=== PATIENT | male | born 1970 | race Caucasian/White ===

== ENCOUNTER 2022-06-20 15:08 | Outpatient (REF) | payer OTHER, SELFPAY ==
--- NOTE | ~2022-06-20 | XR_ITS ---
EXAMINATION: XR HAND, LEFT CLINICAL INFORMATION: Left hand COMPARISON: None TECHNIQUE: PA, lateral, and oblique views of the left hand. FINDINGS: There is slight fragmentation over the terminal tuft of the thumb which could reflect crush fracture of uncertain age. I do not see a radiopaque foreign body as questioned. Carpal alignment is preserved. XR/XR hand LT min 3V IMPRESSION: Crush injury to the terminal tuft of the thumb of uncertain age.
== END 2022-06-20 15:09 | disposition home or self-care (01) ==
LOC: HO.XRAY 15:08
PROVIDERS: Visit Provider Registered Nurse
DX: S60.552A Superficial foreign body of left hand, initial encounter (principal); X58.XXXA Exposure to other specified factors, initial encounter; Y93.9 Activity, unspecified; Y92.9 Unspecified place or not applicable; Y99.9 Unspecified external cause status
CPT/HCPCS: 73130

== ENCOUNTER 2025-05-26 15:10 | Outpatient (REF) | payer OTHER, SELFPAY ==
--- NOTE | ~2025-05-26 | XR_ITS ---
EXAMINATION: XR SINUSES CLINICAL INFORMATION: PRESSURE COMPARISON: None available. TECHNIQUE: 3 views of the sinuses were obtained. FINDINGS: Paranasal sinuses appear grossly clear without gross opacification or air-fluid levels present. The nasal septum is essentially midline. There is no spur. The orbits are intact. The calvarium appears normal. The sella is normal in size. There is no soft tissue abnormality. XR/XR sinus min 3V IMPRESSION: No definite evidence of significant paranasal sinus disease on radiography. CT is far more sensitive if felt clinically warranted. Electronically signed by: Sergio Victoria MD 05/26/2025 03:52 PM EDT
--- OUTSIDE RECORDS SUMMARY | 2025-05-26 13:45 | XMS_ITS | Encounter Summary ---
Author Organization [employer] Address [address] [place] [address] 7 [place] [address] Care Team Providers Care Orientation And Mobility Instructor Name Role Phone Montserrat Ronquillo MD Primary Care Pro vider Encounter Details Date Type Department Care Team ([facility] st Contact Info) Description 05/26/2025 1:45 PM EDT Office Visit [facility] [address] [place] [address] [phone] Montserrat Ronquillo MD [address] [place] [address] Annual physical exam (Primary Dx); Type 2 diabetes mellitus without complication, without long-term current use of insulin (CMS/HCC); Dietary counseling; Exercise counseling; Sinus pain; Encounter for immunization Social History Tobacco Use Types Packs/Day Years Used Date Smoking Tobacco: Every Day Cigarettes Smokeless Tobacco: Never Comments:Started smoking at his 16 y until his 52 y of age -smoked for 36 y ,10 to 15 cig a day ,stopped 2 y ago PQT calc 27 Alcohol Use Standard Drinks/Week Comments Never 0 (1 standard drink = 0.6 oz pur e alcohol) Depression Answer Date Recorded Patient Health Questionnaire-9 Score 0 05/26/2025 Patient Health Questionnaire-9 Score 0 05/26/2025 Last PHQ-9: Questionnaire Data Not on file 0 05/26/2025 Housing Stability Answer Date Recorded What is your housing situation today? I have cecilia alba 05/19/[address] you li ve. Do you have problems with any of the following? None of the above 05/19/2025 Food Insecurity Answer Date Recorded Within the past 12 months, y ou worried that your food would run out before you got money to buy more: Never True 05/19/2025 Within the past 12 months,th e food you bought just didn't last and you didn't have enough money to get more: Never True 07/2025 Transportation Answer Date Recorded In the past 12 months, has l ack of transportation kept you from medical appts, meetings, work or from getting things needed for daily living? No 05/19/2025 Utilities Answer Date Recorded In the past 12 months, has t he electric, gas, oil or water company threatened to shut off services in your home? No 05/19/2025 Depression Answer Date Recorded Patient Health Questionnaire-2 Score 0 05/26/2025 Internet Access Answer Date Recorded Internet Access Q1 Yes 05/19/2025 Internet Access Q2 Not on file 05/19/2025 Sex and Gender Information Value Date Recorded Sex Assigned at Male 07/08/2022 10:30 AM EDT Legal Sex Male 10:30 AM EDT Gender Identity Male 07/08/2022 10:30 AM EDT Sexual Orientation Straight 05/26/2025 2: 16 PM EDT documented as of this encounter Last Filed Vital Signs Vital Sign Reading Time Taken Comments Blood Pressure 142/90 05/26/2025 2:07 PM EDT Pulse 83 05/26/2025 2:07 PM EDT Temperature 36.3 C (97.3 F) 05/26/2025 2:07 PM EDT Respiratory Rate 20 05/26/2025 2:07 PM EDT Oxygen Saturation 99% 05/26/2025 2:07 PM EDT Inhaled Oxygen Concentration - - Weight 115 kg (253 lb) 05/26/2025 2:07 PM EDT Height 172.7 cm (5' 8 ) 05/26/2025 2:07 PM EDT Body Mass Index 38.47 05/26/2025 2:07 PM EDT documented in this encounter Functional Status * Over the past 2 weeks, how often have you been bothered by any of the following problems? Question Answer Date of Assessment Author Patient Health Questionnaire -2 Score 0 05/26/2025 2:09 PM EDT Laura Ni MA * Little interest or pleasure in doing things Answer Date of Assessment Author Not at all 05/26/2025 2:09 PM Giorgio Seay MA * Feeling down, depressed, or hopeless Answer Date of Assessment Author Not at all 05/26/2025 2:09 PM Giorgio Seay MA * Trouble falling or staying asleep, or sleeping too much Answer Date of Assessment Author Not at all 05/26/2025 2:09 PM Giorgio Seay MA * Feeling tired or having little energy Answer Date of Assessment Author Not at all 05/26/2025 2:09 PM Giorgio Seay MA * Poor appetite or overeating Answer Date of Assessment Author Not at all 05/26/2025 2:09 PM Giorgio Seay MA * Feeling bad about yourself - or that you are a failure or have let yourself or your family down Answer Date of Assessment Author Not at all 05/26/2025 2:09 PM Giorgio Seay MA * Trouble concentrating on things, such as reading the newspaper or watching television Answer Date of Assessment Author Not at all 05/26/2025 2:09 PM Giorgio Seay MA * Moving or speaking so slowly that other people could have noticed? Or the opposite - being so fidgety or restless that you have been moving around a lot more than usual. Answer Date of Assessment Author Not at all 05/26/2025 2:09 PM Giorgio Seay MA * Thoughts that you would be better off or hurting yourself in some way Answer Date of Assessment Author Not at all 05/26/2025 2:09 PM Giorgio Seay MA * Patient Health Questionnaire-9 Score Answer Date of Assessment Author 0 05/26/2025 2:09 PM Giorgio Seay MA * Over the last 2 weeks, how often have you been bothered by any of the following problems? Question Answer Date of Assessment Author Feeling nervous, anxious, or on edge 0 05/26/2025 2:09 PM Laura Seay MA Not being able to stop or co ntrol worrying 0 05/26/2025 2:09 PM EDT Laura Ni MA Worrying too much about diff erent things 0 05/26/2025 2:09 PM EDT Laura Ni MA Trouble relaxing 0 05/26/2025 2:09 PM EDT Laura Owen MA Being so restless that it is hard to sit still 0 05/26/2025 2:09 PM EDT Laura Ni MA Becoming easily annoyed or irritable 0 05/26/2025 2:09 PM EDT Laura Ni MA Feeling afraid as if somethi ng awful might happen 0 05/26/2025 2:09 PM EDT Laura Ni MA BOOKER-7 Total Score 0 05/26/2025 2:09 PM EDT Laura Ni MA documented as of this encounter Plan of Treatment Scheduled Orders Name Type Priority Associated Diagnoses Orde r Schedule T4, Free Lab Routine Annual physical exam Expected: 05/26/2025 (Approximate), Expires: 05/26/2026 TSH Lab Routine Annual physical exam Expected: 05/26/2025 (Approximate), Expires: 05/26/2026 Albumin, Random Urine W/Creatinine Lab Routine Annual physical exam Expected: 05/26/2025 (Approximate), Expires: 05/26/2026 CBC auto differential Lab Routine Annual physical exam Expected: 05/26/2025 (Approximate), Expires: 05/26/2026 Chlamydia/Trichomonas/Neis seria gonorrhoeae, PCR, Urine Lab Routine Annual physical exam Ordered: 05/26/2025 Comprehensive Metabolic Panel Lab Routine Annual physical exam Expected: 05/26/2025 (Approximate), Expires: 05/26/2026 Hemoglobin A1c Lab Routine Annual physical exam Expected: 05/26/2025 (Approximate), Expires: 05/26/2026 Hepatitis B Core Antibody, Total Lab Routine Annual physical exam Expected: 05/26/2025 (Approximate), Expires: 05/26/2026 Hepatitis B Surface Antibody, Qualitative Lab Routine Annual physical exam Expected: 05/26/2025 (Approximate), Expires: 05/26/2026 Hepatitis B surface antigen, EIA Lab Routine Annual physical exam Expected: 05/26/2025 (Approximate), Expires: 05/26/2026 Hepatitis C Antibody with Reflex to HCV, RNA, Quantitative, Real-Time PCR Lab Routine Annual physical exam Expected: 05/26/2025 (Approximate), Expires: 05/26/2026 HIV-1/2 Antigen and Antibodies, Fourth Generation, with Reflexes Lab Routine Annual physical exam Expected: 05/26/2025 (Approximate), Expires: 05/26/2026 Lipid Panel, Standard Lab Routine Annual physical exam Expected: 05/26/2025 (Approximate), Expires: 05/26/2026 Syphilis Screen Lab Routine Annual physical exam Expected: 05/26/2025 (Approximate), Expires: 05/26/2026 Vitamin B12 (Cobalamin) and Folate Panel, Serum Lab Routine Annual physical exam Expected: 05/26/2025 (Approximate), Expires: 05/26/2026 Vitamin D, 25-Hydroxy, Total, Immunoassay Lab Routine Annual physical exam Expected: 05/26/2025 (Approximate), Expires: 05/26/2026 XR Paranasal Sinuess 3+ Views Imaging Routine Sinus pain Expected: 05/26/2025, Expires: 05/26/2026 PSA,Total Lab Routine Annual physical exam Expected: 05/26/2025, Expires: 05/26/2026 documented as of this encounter Procedures Procedure Name Priority Date/Time Associated Diagnosis Comments POCT GLYCATED HEMOGLOBIN, TOTAL Routine 05/26/2025 2:12 PM EDT Type 2 diabetes mellitus without complication, without long-term current use of insulin ([facility]) POCT GLUCOSE Routine 05/26/2025 2:12 PM EDT Type 2 diabetes mellitus without complication, without long-term current use of insulin ([facility]/HCC) documented in this encounter Results * (ABNORMAL) POCT Hgb A1c (05/26/2025 2:12 PM EDT) Hemoglobin A1C 6.4(A) 4.0 - 5.7 % QC Media Lot # [id number] Lot# Expiration Date 027,019 Blood 05/26/2025 2:12 PM EDT us Montserrat Valle MD POINT OF CARE CORY T ENTER/EDIT ORDERABLES Final Result * POCT Glucose (05/26/2025 2:12 PM EDT) Glucose Blood, POC 68 60 - 200 mg/dL QC Media Lot # [id number] Lot# Expiration Date [id number] Blood Capillary blood specimen / Unknown 05/26/2025 2:12 PM EDT us Montserrat Valle MD POINT OF CARE CORY T ENTER/EDIT ORDERABLES Final Result documented in this encounter Visit Diagnoses Diagnosis Annual physical exam- Primary Routine general medical examination at a health care facility Type 2 diabetes mellitus without complication, without long-term current use of insulin ([facility]) Dietary counseling Dietary surveillance and counseling Exercise counseling Sinus pain Other diseases of nasal cavity and sinuses Encounter for immunization documented in this encounter Additional Health Concerns Assessment Noted Time PHQ-9 Depression Total Score: 0 05/26/20 25 2:09 PM EDT documented as of this encounter Care Teams Orientation And Mobility Instructor Relationship Specialty Start Date End Date Montserrat Ronquillo MD [address] [place] [id number] PCP - General Internal Medicine 06/17/23 documented as of this encounter
--- OUTSIDE RECORDS SUMMARY | 2025-05-26 16:44 | XMS_ITS | Clinical Summary ---
Author Organization [facility] ity Address [address] [place] [address] Care Team Providers Care Filling Hauler Weaving Name Role Phone Unavailable Primary Care Provider Unavailabl e Surgical History Surgery Date Site/Laterality Comments APPENDECTOMY PROCEDURE: SD APPENDECTOMY Family History Medical History Relation Name Comments Diabetes Father Relation Name Status Comments Father Mother Alive Social History Tobacco Use Types Packs/Day Years Used Date Smoking Tobacco: Every Day Smokeless Tobacco: Never Alcohol Use Standard Drinks/Week Comments Never 0 (1 standard drink = 0.6 oz pur e alcohol) Sex and Gender Information Value Date Recorded Sex Assigned at Not on file Legal Sex Male 4:31 AM EST Gender Identity Not on file Sexual Orientation Not on file Obstetrics History Last Filed Vital Signs Vital Sign Reading Time Taken Comments Blood Pressure 152/90 12/24/2021 3:46 PM EDT Sit ting L Arm Pulse 90 12/24/2021 3:46 PM EDT Temperature - - Respiratory Rate - - Oxygen Saturation - - Inhaled Oxygen Concentration - - Weight 114 kg (251 lb) 12/24/2021 3:46 PM EDT Height 175.3 cm (5' 9 ) 12/24/2021 3:46 PM EDT Body Mass Index 37.07 12/24/2021 3:46 PM EDT Plan of Treatment Health Maintenance Due Date Last Done Comments DTaP,Tdap,and Td Vaccines (1 - Tdap) 1990 Hepatitis B Vaccines (1 of 3 - 19+ 3-dose series) 1990 Pneumococcal Vaccine: 50+ Ye ars (1 of 1 - PCV) 2021 Zoster Vaccines (1 of 2) 2021 Depression Screening 09/08/2024 COVID-19 Vaccine ( - 2023-2 5 season) 2025 Influenza Vaccine (#1) 2025 RSV Immunization Adult Patie nts (1 - 1-dose 75+ series) 2046 HIB Vaccines Aged Out No longer eligi ble based on patient's age to complete this topic HPV Vaccines Aged Out No longer eligi ble based on patient's age to complete this topic Hepatitis A Vaccines Aged Out No long er eligible based on patient's age to complete this topic IPV Vaccines Aged Out No longer eligi ble based on patient's age to complete this topic MMR Vaccines Aged Out No longer eligi ble based on patient's age to complete this topic Meningococcal ACWY Vaccine Aged Out N o longer eligible based on patient's age to complete this topic Meningococcal B Vaccine Aged Out No l onger eligible based on patient's age to complete this topic RSV Immunization Patients Un [place] 20 months Aged Out No longer eligible b ased on patient's age to complete this topic Varicella Vaccines Aged Out No longer eligible based on patient's age to complete this topic
--- OUTSIDE RECORDS SUMMARY | 2025-05-26 16:44 | XMS_ITS | Encounter Summary ---
Author Organization [employer] Address [address] [place] [address] 7 [place] [address] Care Team Providers Care Glove Operator Name Role Phone Montserrat Ronquillo MD Primary Care Pro vider Reason for Visit * Reason Comments Med Refill Encounter Details Date Type Department Care Team (Late st Contact Info) Description 07/28/2023 Refill [facility] [address] [place] [address] Simran Rivero FNP Type 2 diabetes mellitus without complication, without long-term current use of insulin (CMS/HCC) Social History Tobacco Use Types Packs/Day Years Used Date Smoking Tobacco: Every Day Cigarettes Smokeless Tobacco: Never Sex and Gender Information Value Date Recorded Sex Assigned at Male 07/08/2022 10:30 AM EDT Legal Sex Male 10:30 AM EDT Gender Identity Male 07/08/2022 10:30 AM EDT Sexual Orientation Straight 05/26/2025 2: 16 PM EDT documented as of this encounter Plan of Treatment Not on file documented as of this encounter Visit Diagnoses Diagnosis Type 2 diabetes mellitus without complication, without long-term current use of insulin (CMS/HCC) documented in this encounter Care Teams Glove Operator Relationship Specialty Start Date End Date Montserrat Ronquillo MD [address] [place], [place] [phone] PCP - General Internal Medicine 06/17/23 documented as of this encounter
--- OUTSIDE RECORDS SUMMARY | 2025-05-26 16:44 | XMS_ITS | Encounter Summary ---
Author Organization [employer] Address [address] [place] [address] [address] [place] [address] Care Team Providers Care Treasury Director Name Role Phone Montserrat Ronquillo MD Primary Care Pro vider Encounter Details Date Type Department Care Team (Late st Contact Info) Description 02/09/2024 Orders Only [facility] [address] [place], [place] [phone] Provider, MD Krystle Social History Tobacco Use Types Packs/Day Years [...] on file documented as of this encounter Procedures Procedure Name Priority Date/Time Associated Diagnosis Comments HM COLONOSCOPY Routine 11/20/2021 3:56 PM EDT documented in this encounter Results * Hm Colonoscopy (11/20/2021 3:56 PM EDT) Historical Provider HEALTH MAINTENANCE Final Result documented in this encounter Visit Diagnoses Not on filedocumented in this encounter Care Teams Treasury Director Relationship Specialty Start Date End Date Montserrat Ronquillo MD [address] [place], [place] [phone] PCP - General Internal Medicine 06/17/23 documented as of this encounter
--- OUTSIDE RECORDS SUMMARY | 2025-05-26 16:45 | XMS_ITS | Encounter Summary ---
Author Organization [employer] Address [address] [facility] [address] [place] [address] Care Team Providers Care Tar Heater Operator Name Role Phone Montserrat Ronquillo MD Primary Care Pro vider Encounter Details Date Type Department Care Team (Latest Contact Info) Description 05/26/2025 Travel Social History Tobacco Use Types Packs/Day Years [...] t he electric, gas, oil or water [employer] threatened to shut off services in your [...] PM EDT documented as of this encounter Functional Status * Over the past 2 weeks, how often have you been bothered by any of the following problems? Question Answer Date of Assessment Author Patient Health Questionnaire -2 Score 0 05/26/2025 2:09 PM EDT Laura Ni MA * Little interest or pleasure in doing things Answer Date of Assessment Author Not at all 05/26/2025 2:09 PM EDT Giorgio Ni MA * Feeling down, depressed, or hopeless Answer Date of Assessment Author Not at all 05/26/2025 2:09 PM BETTYT Giorgio Ni MA * Trouble falling or staying asleep, or sleeping too much Answer Date of Assessment Author Not at all 05/26/2025 2:09 PM BETTYT Giorgio Ni MA * Feeling tired or having little energy Answer Date of Assessment Author Not at all 05/26/2025 2:09 PM BETTYT Giorgio Ni MA * Poor appetite or overeating Answer Date of Assessment Author Not at all 05/26/2025 2:09 PM BETTYT Giorgio Ni MA * Feeling bad about yourself - [...] Author Not at all 05/26/2025 2:09 PM EDT Giorgio Ni MA * Thoughts that you would be better off or hurting yourself in some way Answer Date of Assessment Author Not at all 05/26/2025 2:09 PM EDT Giorgio Ni MA * Patient Health Questionnaire-9 Score Answer Date of Assessment Author 0 05/26/2025 2:09 PM EDT Giorgio Ni MA * Over the last 2 weeks, how often have you been bothered by any of the following problems? Question Answer Date of Assessment Author Feeling nervous, anxious, or on edge 0 05/26/2025 2:09 PM EDT Laura Ni MA Not being able to stop or [...] documented as of this encounter Visit Diagnoses Not on filedocumented in this encounter Additional Health Concerns Assessment Noted Time PHQ-9 Depression Total Score: 0 05/26/20 25 2:09 PM EDT documented as of this encounter Care Teams Tar Heater Operator Relationship Specialty Start Date End Date Monsterrat Ronquillo MD [address] [place] [id number] PCP - General Internal Medicine 06/17/23 documented as of this encounter
--- OUTSIDE RECORDS SUMMARY | 2025-05-26 16:45 | XMS_ITS | Encounter Summary ---
Author Organization [employer] Address [address] [place] [address] 7 [place] [address] Care Team Providers Care Lithograph Press Feeder Name Role Phone Montserrat Ronquillo MD Primary Care Pro vider Encounter Details Date Type Department Care Team ([facility] st Contact Info) Description 05/26/2025 Orders Only [facility] [address] [place] [address] [phone] Montserrat Ronquillo MD [address] [place] [address] Social History Tobacco Use Types Packs/Day Years [...] 2:09 PM EDT Giorgio Ni MA * Trouble falling or staying asleep, or sleeping too much Answer Date of Assessment Author Not at all 05/26/2025 2:09 PM EDT Giorgio Ni MA * Feeling tired or having little energy Answer Date of Assessment Author Not at all 05/26/2025 2:09 PM EDT Giorgio Ni MA * Poor appetite or overeating Answer Date of Assessment Author Not at all 05/26/2025 2:09 PM EDT Giorgio Ni MA * Feeling bad about yourself - or that you are a failure or have let yourself or your family down Answer Date of Assessment Author Not at all 05/26/2025 2:09 PM EDT Giorgio Ni MA * Trouble concentrating on things, such as reading the newspaper or watching television Answer Date of Assessment Author Not at all 05/26/2025 2:09 PM EDT Giorgio Ni MA * Moving or speaking so slowly [...] ntrol worrying 0 05/26/2025 2:09 PM EDT aLura Ni MA Worrying too much about diff erent things 0 05/26/2025 2:09 PM EDT Laura Ni MA Trouble relaxing 0 05/26/2025 2:09 PM EDT Laura Owen MA Being so restless that it is hard to sit still 0 05/26/2025 2:09 PM BETTYT Laura Ni MA Becoming easily annoyed or irritable 0 05/26/2025 2:09 PM BETTYT Laura Ni MA Feeling afraid as if somethi ng awful might happen 0 05/26/2025 2:09 PM BETTYT Laura Ni MA BOOKER-7 Total Score 0 05/26/2025 2:09 PM EDT Laura Ni MA documented as of this encounter Plan of Treatment Not on file documented as of this encounter Procedures Procedure Name Priority Date/Time Associated Diagnosis Comments XR SINUS 3 VIEWS Routine 05/26/2025 3:40 PM EDT documented in this encounter Results * XR Sinus 3 Views (05/26/2025 3:40 PM EDT) Anatomical Region Laterality Modality Radiographic Anna Marie ging 05/26/2025 3:40 PM EDT Narrative 05/26/2025 3:56 PM EDT [facility] [address] [place] [address] XRay Report Signed Patient: Carlos Cárdenas MR#: [id number] : 1970 Acct:[id number] Age/Sex: 54 / M ADM Date: 05/26/25 Loc: HO.HHCX Attending Dr: Montserrat Valle MD Ordering Physician: Montserrat Ronquillo MD Date of Service: 05/26/25 Procedure(s): XR sinus min 3V Accession Number(s): [id number] cc: Montserrat Ronquillo MD Reason for Exam: PRESSURE EXAMINATION: XR SINUSES CLINICAL INFORMATION: PRESSURE COMPARISON: None available. TECHNIQUE: 3 views of the sinuses were obtained. FINDINGS: Paranasal sinuses appear grossly clear without gross opacification or air-fluid levels present. The nasal septum is essentially midline. There is no spur. The orbits are intact. The calvarium appears normal. The sella is normal in size. There is no soft tissue abnormality. XR/XR sinus min 3V IMPRESSION: No definite evidence of significant paranasal sinus disease on radiography. CT is far more sensitive if felt clinically warranted. Electronically signed by: Sergio Victoria MD 05/26/2025 03:52 PM EDT Dictated By: Sergio Victoria MD Signed By: <Electronically signed by Sergio Victoria MD in OV> 05/26/25 1552 DD/ 1540 TD/TT: 05/26/25 1541 Clean Room Technician: Procedure Note Donotuseinterpreter, Image - 05/26/[address] [address] XRay Report Signed Patient: Silva Cárdenas#: [id number] : 1970Acct:[id number] Age/Sex: 54 / MADM Date: 05/26/25 Loc: HO.HHCX Attending Dr: Montserrat Valle MD Ordering Physician: Montserrat Ronquillo MD Date of Service: 05/26/25 Procedure(s): XR sinus min 3V Accession Number(s): [id number] cc: Montserrat Ronquillo MD Reason for Exam: PRESSURE EXAMINATION: XR SINUSES CLINICAL INFORMATION: PRESSURE COMPARISON: None available. TECHNIQUE: 3 views of the sinuses were obtained. FINDINGS: Paranasal sinuses appear grossly clear without gross opacification or air-fluid levels present. The nasal septum is essentially midline. There is no spur. The orbits are intact. The calvarium appears normal. The sella is normal in size. There is no soft tissue abnormality. XR/XR sinus min 3V IMPRESSION: No definite evidence of significant paranasal sinus disease on radiography. CT is far more sensitive if felt clinically warranted. Electronically signed by: Sergio Victoria MD 05/26/2025 03:52 PM EDT Dictated By: Sergio Victoria MD Signed By: <Electronically signed by Sergio Victoria MD in OV> 05/26/25 1552 DD/ 1540 TD/TT: 05/26/25 1541 Clean Room Technician: us Montserrat Valle MD IMG XR PROCEDURES Final Result documented in this encounter Visit Diagnoses Not on filedocumented in this encounter Additional Health Concerns Assessment Noted Time PHQ-9 Depression Total Score: 0 05/26/20 25 2:09 PM EDT documented as of this encounter Care Teams Lithograph Press Feeder Relationship Specialty Start Date End Date Montserrat Ronquillo MD [address] [place] [phone] PCP - General Internal Medicine 06/17/23 documented as of this encounter
--- OUTSIDE RECORDS SUMMARY | 2025-05-26 16:45 | XMS_ITS | Clinical Summary ---
Author Organization [employer] Address [address] [place] [address] [address] [place] [address] Care Team Providers Care Right Of Way Buyer Name Role Phone Montserrat Ronquillo MD Primary Care Pro vider Allergies No known active allergies Medications Blood Glucose Monitoring Suppl ([email or web address] [place] Lite) w/Device kitIndications: Type 2 diabetes mellitus without complication, without long-term current use of insulin (CMS/[facility]ERLY [facility]) 1 each in the morning and at bedtime. 1 kit 09/04/20 22 Active Lancets Ultra Fine miscIndications :Type 2 diabetes mellitus without complication, without long-term current use of insulin (CMS/HCC) 1 each in the morning and at bedtime. 100 each 11 09/04/20 22 Active Mapap Arthritis Pain 650 MG ER tablet TAKE 2 TABLETS BY MOUTH EVERY 8 HOURS NEEDED FOR FEVER. (LIMIT 4000MG OF TYLENOL/ACETAM INOPHEN PER DAY) 06/14/20 22 Active polyethylene glycol, PEG, 3350 (Glycolax) 17 GM/SCOOP powder MIX BOTTLE WITH 64 OUNCES OF GATORADE OR LIQUID CLEAR. START AT 8 IN THE EVENING ON THE NIGHT BEFORE PROCEDURE. DRINK 8 OUNCES EVERY 15-20 MINUTES UNTIL FINISHED 11/17/19 22 Active busPIRone (Buspar) 5 MG tablet Take 5 mg by mouth 2 times daily. 04/16/20 22 Active Blood Pressure Monitoring (Omron 3 Series BP Monitor) deviceIndicatio ns:Elevated BP without diagnosis of hypertension 1 each in the morning. 1 each 10/01/19 23 Active sildenafil (Viagra) 100 MG tabletIndicatio ns:Vasculogenic erectile dysfunction, unspecified vasculogenic erectile dysfunction type TAKE 1 TABLET 1 HOUR BEFORE SEXUAL RELATIONS ONCE DAILY NEEDED. 30 tablet 3 02/26/20 23 Active Additional Information Patient not taking.Reported on 05/26/2025 omeprazole (PriLOSEC) [address] capsule TAKE 1 CAPSULE BY MOUTH EVERY DAY BEFORE MEALS NEEDED FOR HEARTBURN 90 capsule 02/03/20 24 Active Additional Information Patient not taking.Reported on 05/26/2025 D3 Super Strength 50 MCG (2000 UT) capsule TAKE 1 CAPSULE BY MOUTH EVERY DAY 90 capsule 04/26/20 24 Active Additional Information Patient not taking.Reported on 05/26/2025 atorvastatin (Lipitor) 40 MG tablet Take 1 tablet (40 mg) by mouth Once per day. 90 tablet 05/26/20 25 2025 Active metFORMIN (Glucophage) 500 MG tabletIndicatio ns:Type 2 diabetes mellitus without complication, without long-term current use of insulin (CMS/HCC) Take 1 tablet (500 mg) by mouth with breakfast and with evening meal. 180 tablet 05/26/20 25 Active levothyroxine (Synthroid, Levoxyl) 100 MCG tablet Take 1 tablet (100 mcg) by mouth Once per day. 90 tablet 05/26/20 25 Active amoxicillin (Amoxil) 875 MG tablet Take 1 tablet (875 mg) by mouth 2 times daily for 10 days. 20 tablet 05/26/20 25 2024 Active fluticasone (Flonase) 50 MCG/ACT nasal spray Administer 1-2 sprays into each nostril Once per day. Shake gently. Before first use, prime pump. After use, clean tip and replace cap. Do not rec refills only done for insurance purpose but pt needs 21 to 28 days of tx only 16 g 2 05/26/20 25 2025 Active sodium chloride ([place]) 0.65 % nasal spray Administer 1 spray into each nostril if needed for congestion. 15 mL 2 05/26/20 25 2025 Active metFORMIN (Glucophage) 500 MG tabletIndicatio ns:Type 2 diabetes mellitus without complication, without long-term current use of insulin (CMS/HCC) Take 1 tablet (500 mg) by mouth with breakfast and with evening meal. 180 tablet 1 09/04/20 22 2024 Discontinued(R eorder (will not trigger notification to Pharmacy)) ibuprofen 800 MG tabletIndicatio ns:Avulsion injury Take 1 tablet (800 mg) by mouth if needed in the morning, at noon, and at bedtime for mild pain. 180 tablet 1 10/01/19 23 2024 Discontinued(O ther) omega-3 (Fish Oil) 1200 MG capsuleIndicati ons:Dyslipidemi a TAKE 1 CAPSULE BY MOUTH EVERY MORNING 90 capsule 04/25/20 23 2024 Discontinued(O ther) atorvastatin (Lipitor) 80 MG tabletIndicatio ns:Type 2 diabetes mellitus without complication, without long-term current use of insulin (CMS/HCC) TAKE 1 TABLET BY MOUTH AT BEDTIME 90 tablet 07/28/20 23 2024 Discontinued(O ther) levothyroxine (Synthroid, Levoxyl) 100 MCG tablet TAKE 1 TABLET BY MOUTH EVERY DAY 90 tablet 02/04/20 25 2024 Discontinued(R eorder (will not trigger notification to Pharmacy)) Active Problems Problem Noted Date Diagnosed Date Traumatic incomplete tear of right rotator cuff 03/23/2023 Overview (03/23/2023): Care managed by [facility] appt 12/16/22 Plan for arthroscopy with rotator cuff repair Hx of hepatitis C 10/01/2022 Overview (10/01/2022): Received Tx in the past Type 2 diabetes mellitus wit hout complication, without long-term current use of insulin 10/01/2022 Overview (10/01/2022): A1c 6.8 on 10/01/22, glucose 105 Microalbumin: pending. Order 10/01/22 Foot exam: WNL 10/01/22 Lipid panel: Elevated 2020, will check again today. Tae/Arb: Discussed BP with patient and that he may need to start a medication soon. Statin: Continue Atorvastatin 80mg Avulsion injury 06/06/2022 Overview (10/01/2022): Care managed by Ortho. May need surgery to R shoulder, had MRI of R shoulder performed by ortho. PT x 6 weeks Snoring 04/10/2018 Primary erectile dysfunction 06/28/2016 Dyslipidemia 05/31/2016 Acquired hypothyroidism 05/29/2016 Overview (10/01/2022): Continue Levothyroxine 100mcg Gastroesophageal reflux disease without esophagi tis 05/29/2016 Resolved Problems Problem Noted Date Diagnosed Date Resolved Date Prediabetes 09/04/2022 10/01/2022 Encounters Date Type Department Care Team Description 05/26/2025 1:45 PM EDT Office Visit [facility] [address] [place] [phone] Montserrat Ronquillo MD Annual physical exam (Primary Dx); Type 2 diabetes mellitus without complication, without long-term current use of insulin ([facility]); Dietary counseling; Exercise counseling; Sinus pain; Encounter for immunization 05/26/2025 Orders Only [facility] [address] [place] [phone] Montserrat Ronquillo MD 05/26/2025 Travel 05/25/2025 Telephone [facility] [address] [place] [phone] Montserrat Ronquillo MD chart prep 05/19/2025 Patient Outreach [facility] [address] [place], [place] [phone] Montserrat Ronquillo MD Pre-visit Planning (SDOH negative, tobacco screening negative. ) 03/07/2025 Telephone [facility] [address] [place] [phone] Montserrat Ronquillo MD recall from Last 3 Months Immunizations Immunization Administration Dates Next Due Influenza injectable quadriv alent IIV4 with preservative 07/10/2018 Influenza injectable quadriv alent preservative free 05/29/2021,07/16/2019,07/04/2017 Influenza, IIV3, injectable 05/29/2021,1 09/15/2018,07/10/2018,07/04 Pneumococcal Conjugate PCV 20 05/26/2025 Pneumococcal Polysaccharide PPSV23 09/16/2016 Tdap 07/04/2017 Zoster, Recombinant 10/11/2022,01/25/2022 Family History Medical History Relation Name Comments DM2 Father unspecifed maligancy Maternal Grandmother Skin cancer Mother colon ca at 50s Mother's Brother Relation Name Status Comments Father Maternal Grandmother Mother Mother's Brother Social History Tobacco Use Types Packs/Day Years [...] Orientation Straight 05/26/2025 2: 16 PM EDT Last Filed Vital Signs Vital Sign Reading [...] Mass Index 38.47 05/26/2025 2:07 PM EDT Plan of Treatment Health Maintenance Due Date Last Done Comments CT Colonography 1971 FIT DNA/Cologuard 1971 FIT 1971 FOBT 1971 Sigmoidoscopy 1971 Eye Exam 1981 Hepatitis A Vaccines (1 of 2 - Risk 2-dose series) 1990 Hepatitis B Vaccines (1 of 3 - 19+ 3-dose series) 1990 Diabetes: Foot Exam 10/01/2023 10/01/2022, Diabetes: Urine Protein Screening 10/02/2023 10/02/2022 Lipid Panel 10/02/2023 10/02/2022, 04/08, 01/08/2021 COVID-19 Vaccine ( season) 2025 07/23/2022, 01/25/2022, 08/24/2021, Additional history exists Influenza Vaccine (#1) 2025 , 05/29/2021, 07/16/2019, Additional history exists Diabetes: Hemoglobin A1C 11/23/2025 025, 10/02/2022, 10/01/2022, Additional history exists SDOH Screening 05/19/2026 05/19/2025 Alcohol/Substance Use Screening 05/26/2026 05/26/2025 Depression Screening 05/26/2026 05/26/2025, 05/26/20 25 Disability Screening 05/26/2026 05/26/2025 Tobacco Screening 05/26/2026 05/26/2025 Colonoscopy 11/20/2026 11/20/2021 Colorectal Cancer Screening 11/20/2026 DTaP/Tdap/Td Vaccines (2 - Td or Tdap) 07/04/2027 07/04/2017 RSV Patients and Patients Aged 60 years or older (1 - 1-dose 75+ series) 2046 HIV Screening Completed 01/08/2021 Zoster Vaccines Completed 10/11/2022, 01/25/2022 Pneumococcal Vaccine: 50+ Years Completed 05/26/2025, 09/16/2016 HIB Vaccines Aged Out No longer eligi [...] patient's age to complete this topic Meningococcal Vaccine Aged Out No kaylah abby eligible based on patient's age to complete this topic RSV under 20 months Aged Out No longe r eligible based on patient's age to complete this topic Rotavirus Vaccines Aged Out No longer eligible based on patient's age to complete this topic Procedures Procedure Name Priority Date/Time Associated Diagnosis Comments XR SINUS 3 VIEWS Routine 05/26/2025 3:40 PM EDT POCT GLYCATED HEMOGLOBIN, TOTAL Routine 05/26/2025 2:12 PM EDT Type 2 diabetes mellitus without complication, without long-term current use of insulin (CMS/HCC) POCT GLUCOSE Routine 05/26/2025 2:12 PM EDT Type 2 diabetes mellitus without complication, without long-term current use of insulin (CMS/HCC) ALBUMIN, RANDOM URINE W/O CREATININE Routine 10/02/2022 8:03 AM EST Type 2 diabetes mellitus without complication, without long-term current use of insulin (CMS/HCC) LIPID PANEL, STANDARD Routine 10/02/2022 8:03 AM EST Type 2 diabetes mellitus without complication, without long-term current use of insulin (CMS/HCC) HM COLONOSCOPY Routine 11/20/2021 3:56 PM EDT HIV 1/2 ANTIGEN/ANTIBODY, FOURTH GENERATION W/RFL Routine 01/08/2021 1:13 PM EDT from Last 3 Months or Most Recently Relevant to Health Maintenance Results * XR Sinus 3 Views (05/26/2025 3:40 PM EDT) Anatomical Region Laterality Modality Radiographic Anna Marie ging 05/26/2025 3:40 PM EDT Narrative 05/26/2025 3:56 PM EDT [facility] [address] [place] [address] XRay Report Signed Patient: Carlos Cárdenas MR#: [id number] : 1970 Acct:[id number] Age/Sex: 54 / M ADM Date: 05/26/25 Loc: HO.HHCX Attending Dr: Montserrat Valle MD Ordering Physician: Montserrat Ronquillo MD Date of Service: 05/26/25 Procedure(s): XR sinus min 3V Accession Number(s): [id number] cc: Montserrat Ronquillo MD Reason for Exam: [...] 05/26/25 1552 DD/ 1540 TD/TT: 05/26/25 1541 Lumber Straightener: Procedure Note Donotuseinterpreter, Image - 05/26/2025 [facility] [address] [place] [address] XRay Report Signed Patient: Silva Cárdenas#: [id number] : 1970Acct:[id number] Age/Sex: 54 / MADM Date: 05/26/25 Loc: HO.HHCX Attending Dr: Montserrat Valle MD Ordering Physician: Montserrat Ronquillo MD Date of Service: 05/26/25 Procedure(s): XR sinus min 3V Accession Number(s): [id number] cc: Montserrat Ronquillo MD Reason for Exam: [...] 05/26/25 1552 DD/ 1540 TD/TT: 05/26/25 1541 Lumber Straightener: us Montserrat Valle MD IMG XR PROCEDURES Final Result * (ABNORMAL) POCT Hgb A1c (05/26/2025 2:12 PM EDT) Hemoglobin A1C 6.4(A) 4.0 - 5.7 % QC Media Lot # [id number] Lot# Expiration Date 357,037 Blood 05/26/2025 2:12 PM EDT Montserrat Valle MD POINT OF CARE CORY T ENTER/EDIT ORDERABLES Final Result * POCT Glucose (05/26/2025 2:12 PM EDT) Glucose Blood, POC 68 60 - 200 mg/dL QC Media Lot # [id number] Lot# Expiration Date ,199,884 Blood Capillary blood specimen / Unknown 05/26/2025 2:12 PM EDT Montserrat Valle MD POINT OF CARE CROY T ENTER/EDIT ORDERABLES Final Result * Albumin, Random Urine W/O Creatinine (10/02/2022 8:03 AM EST) Albumin, Urine 0.8 See Note: mg/dL [email or web address] [place] [facility] Comment: Reference Range: Reference Range Not established JOSEFINA [employer] [place] [facility] Comment: The ADA defines abnormalities in albumin excretion as follows: Albuminuria Category Result (mcg/mg creatinine) Normal to Mildly increased <30 Moderately increased 30-299 Severely increased > OR = 300 The ADA recommends that at least two of three specimens collected within a 3-6 month period be abnormal before considering a patient to be within a diagnostic category. Urine Urine specimen obtained by clean catch procedure / Unknown 10/02/2022 8:03 AM EST 10/02/2022 8:03 AM EST Narrative [facility] - 10/03/2022 4:40 PM EST FASTING:YES FASTING: YES Simran Rivero [facility] URINE ORDERABLES Final Result [facility] [address] [place] [address] [email or web address] [place] [facility] [address] [facility], ([address]) [place] [address] * (ABNORMAL) Lipid Panel, Standard (10/02/2022 8:03 AM EST) Cholesterol, Total 211(H) <200 mg/dL [email or web address] [place] [facility] HDL Cholesterol 29(L) > OR = 40 mg/dL [email or web address] [place] [facility] Triglycerides 343(H) <150 mg/dL [email or web address] [place] [facility] Comment: If a non-fasting specimen was collected, consider repeat triglyceride testing on a fasting specimen if clinically indicated. Rom et al. J. of Clin. Lipidol. 2015;9:129-169. LDL Cholesterol 133(H) mg/dL (calc) [email or web address] [place] [facility] Comment: Reference range: <100 Desirable range <100 mg/dL for primary prevention; <70 mg/dL for patients with CHD or diabetic patients with > or = 2 CHD risk factors. LDL-C is now calculated using the Geri calculation, which is a validated novel method providing better accuracy than the Friedewald equation in the estimation of LDL-C. Drew SS et al. GASTON. 2013;310(69): 7844-1035 (http://education.iContainers/faq/FWU109) Chol/HDLC Ratio 7.3(H) <5.0 (calc) [email or web address] Non-HDL Cholesterol 182(H) <130 mg/dL (calc) [email or web address] [place] [facility] Comment: For patients with diabetes plus 1 major ASCVD risk factor, treating to a non-HDL-C goal of <100 mg/dL (LDL-C of <70 mg/dL) is considered a therapeutic option. Blood Venous blood specimen / Unknown 10/02/2022 8:03 AM EST 10/02/2022 8:03 AM EST Narrative [facility] - 10/03/2022 4:40 PM EST FASTING:YES FASTING: YES Simran Rivero CLUB ATTENDANT LAB BLOOD ORDERABLES Final Result [facility] [address] [facility], [facility], [place] [address] [email or web address] [place] [facility] [address] [facility], ([address]) [place] [address] * Hm Colonoscopy (11/20/2021 3:56 PM EDT) Historical Provider HEALTH MAINTENANCE Final Result * HIV 1/2 ANTIGEN/ANTIBODY,FOURTH GENERATION W/RFL (01/08/2021 1:13 PM EDT) HIV-1/2 ANTIGEN AND ANTIBODIES, 4TH GENERATION W/ REFLEX NON-REACT SUNNY NON-REACT SUNNY [facility] Comment: HIV-1 antigen and HIV-1/HIV-2 antibodies were not detected. There is no laboratory evidence of HIV infection. PLEASE NOTE: This information has been disclosed to you from records whose confidentiality may be protected by state law. If your state requires such protection, then the state law prohibits you from making any further disclosure of the information without the specific written consent of the person to whom it pertains, or as otherwise permitted by law. A general authorization for the release of medical or other information is NOT sufficient for this purpose. For additional information please refer to http://education.[employer]/faq/KHN134 (This link is being provided for informational/ educational purposes only.) The performance of this assay has not been clinically validated in patients less than 2 years old. 01/08/2021 1:13 PM EDT us Krista Henriquez CLUB ATTENDANT LAB BLOOD ORDERABLES Final Res ult [facility] [address] from Last 3 Months or Most Recently Relevant to Health Maintenance Insurance [employer] Care Teams Right Of Way Buyer Relationship Specialty Start Date End Date Montserrat Ronquillo MD [address] [place] [phone] PCP - General Internal Medicine 06/17/23
--- OUTSIDE RECORDS SUMMARY | 2025-05-26 16:45 | XMS_ITS | Encounter Summary ---
Author Organization [employer] Address [address] [place] [address] [place] [address] Care Team Providers Care Target Man Name Role Phone Montserrat Ronquillo MD Primary Care Pro vider Reason for Visit * Reason Onset Date Comments chart prep 05/25/2025 Encounter Details Date Type Department Care Team ([facility] st Contact Info) Description 05/25/2025 Telephone [facility] [address] [place], [place] [phone] Montserrat Ronquillo MD [address] [place] [address] chart prep Social History Tobacco Use Types Packs/Day Years Used Date Smoking Tobacco: Every Day Cigarettes Smokeless Tobacco: Never Depression Answer Date Recorded Patient Health Questionnaire-9 [...] PM EDT documented as of this encounter Miscellaneous Notes * Telephone Encounter - Iván Mcfarlane [place] - 05/25/2025 10:03 AM EDT Chart Prep Labs: not applicable Images: not applicable Referrals: not applicable Vaccines due: Covid, Flu, PCV20, Hep B, and Hep A Screenings: eye exam and foot exam Overdue care gaps: SBIRT, PHQ-9, BOOKER-7, and Disability screen documented in this encounter Plan of Treatment Not on file documented as of this encounter Visit Diagnoses Not on filedocumented in this encounter Care Teams Target Man Relationship Specialty Start Date End Date Montserrat Ronquillo MD [address] [place] [phone] PCP - General Internal Medicine 06/17/23 documented as of this encounter
== END 2025-05-26 15:11 | disposition home or self-care (01) ==
LOC: HO.HHCX 15:10
PROVIDERS: PCP Student in an Organized Health Care Education/Training Program; Visit Provider Student in an Organized Health Care Education/Training Program
DX: J34.89 Other specified disorders of nose and nasal sinuses (principal)
CPT/HCPCS: 70220

== ENCOUNTER → 2025-05-26 15:40 | Outpatient (BNV) | payer OTHER, SELFPAY | PROVIDERS: PCP Student in an Organized Health Care Education/Training Program; Visit Provider Radiology Diagnostic Radiology | DX: J32.9 Chronic sinusitis, unspecified (principal) | CPT/HCPCS: 70220 ==